=== PATIENT | male | born 1975 | race Caucasian/White ===

== ENCOUNTER 2016-10-04 02:14 | Emergency (ER) | payer OTHER ==
[~2016-10-04] VITALS: Ht 190.5 cm; Wt 108.9 kg
--- NOTE | ~2016-10-04 | CT4 ---
[facility] A Service of [facility] RADIOLOGY TEXT RESULTS PATIENT: COLTEN TEJADA LOCATION: SED : [birth year] UNIT #: [id number] AGE: [address]: Harman Hay MD SEX: M ORDER DR: [id number] [address] [address] [id number] E MR#: [id number] Acc #: [id number] NAME: COLTEN TEJADA. : 1975 SEX: M STUDY DATE/TIME: 10/04/2016 4:16 UNIT: SED ROOM: STUDY DESCRIPTION: CT Abd and Pelv Wo Cont Attending Physician: Harman Hay M.D. Ordering Physician: Harman Hay M.D. MEDICAL IMAGING REPORT This report is preliminary unless electronic signature is present. EXAM CT abdomen and pelvis without contrast INDICATIONS Left lower quadrant abdominal pain since yesterday. TECHNIQUE Unenhanced CT of the abdomen and pelvis. This CT exam was performed with one or more of the following radiation dose reduction techniques: automatic exposure control, adjustment of mA and/or kV according to patient size, and iterative reconstruction. FINDINGS ABDOMEN WITHOUT CONTRAST: Linear atelectasis or scarring at the lung bases. Hepatic steatosis. Spleen, adrenal glands, pancreas, gallbladder show no acute abnormality. Moderate colonic stool burden. Appendix normal. There is a 2 mm calculus at the left UVJ. There is moderate left hydronephrosis and perinephric stranding. PELVIS WITHOUT CONTRAST: No radiodense bladder calculus. No aggressive appearing bone lesion. IMPRESSION 1. 2 mm obstructing calculus at the left UVJ. Moderate hydronephrosis. 2. Hepatic steatosis. 1. Dictated by... Jamel Orozco M.D. [facility] A Service of [facility] RADIOLOGY TEXT RESULTS PATIENT: COLTEN TEJADA LOCATION: SED : [birth year] UNIT #: [id number] AGE: [address]: Harman Hay MD SEX: M ORDER DR: THIS IS AN ELECTRONICALLY VERIFIED REPORT Jamel Orozco M.D. at 10/04/2016 10:25 PM EED/mario TD: 10/04/2016 09:54 JOB #: [id number] MEDICAL IMAGING REPORT Page 1 of 1
[~2016-10-04 02:14] MED LIST: HYDROXYZINE HCL25 M1 PO; MEDROL4 MG/DOSE- PO
[2016-10-04 03:39] LABS: BASOPHIL# 0.1 X10e3 (0-0.3); BASOPHIL% 0.5 % (0-2.5); EOSINOPHIL% 0.1 % (0.0-7.0); HEMATOCRIT 46.8 % (38.0-50.0); HEMOGLOBIN 15.4 gm/dL (13.0-16.0); LYMPHOCYTE# 0.9 X10e3 (1.0-3.5); LYMPHOCYTE% 7.3 % (17.0-45.0); MEAN CELL VOLUME 88.9 FL (83-96); MEAN CORPUSCULAR HEMOGLOBIN 29.3 PG (28-34); MEAN PLATELET VOLUME 7.5 FL (6.5-11.5); MONOCYTE# 0.6 X10e3 (0-1.0); MONOCYTE% 5.1 % (3.0-12.0); NEUTROPHIL# 10.9 X10e3 (1.5-7.1); PLATELET COUNT 302 X10e3 (140-420); RED BLOOD COUNT 5.26 X10e (3.90-5.60); RED CELL DISTRIBUTION WIDTH 13.7 % (11.0-15.5); WHITE BLOOD COUNT 12.6 X10e3 (4.0-10.5)
[2016-10-04 03:42] LABS: DIFF IND NO
[2016-10-04 03:50] LABS: ALBUMIN SERUM 4.6 g/dL (3.5-5.0); BILIRUBIN, DIRECT 0.1 mg/dL (0.0-0.2); BILIRUBIN,INDIRECT 0.3 mg/dL (0.0-0.9); BILIRUBIN,TOTAL 0.4 mg/dL (0.2-2.0); BUN/CREATININE RATIO 14.61; CALCIUM SERUM 9.3 mg/dL (8.4-10.2); CREATININE SERUM 1.3 mg/dL (0.6-1.4); GLOM FILT RATE Estimated 68.3 mL/min (>60); POTASSIUM 4.5 mmol/L (3.5-5.1); PROTEIN TOTAL SERUM 7.7 g/dL (6.0-8.3)
[2016-10-04 06:06] LABS: URINE SOURCE CLEAN CATCH
[2016-10-04 06:08] LABS: URINE APPEARANCE CLEAR; URINE BILIRUBIN NEG (NEG); URINE BLOOD 1+ (NEG); URINE COLOR YELLOW; URINE GLUCOSE NEG (NORM); URINE KETONE NEG (NEG); URINE LEUKOCYTE ESTERASE NEG (NEG); URINE NITRATE NEG (NEG); URINE PH 5.5 (5-8); URINE PROTEIN NEG (NEG); URINE UROBILINOGEN 0.2 MG/DL (NORM)
[2016-10-04 06:12] LABS: MICRO INDICATED? YES
[2016-10-04 06:15] LABS: CULTURE INDICATED? NO; URINE BACTERIA NEG (NEG); URINE WBC 0-2 /[HPF] (0-5)
== END 2016-10-04 06:30 | disposition home or self-care (01) ==
LOC: SED 02:14
PROVIDERS: Emergency Medicine
DX: N13.2 Hydronephrosis with renal and ureteral calculous obstruction (principal); F32.9 Major depressive disorder, single episode, unspecified; F17.200 Nicotine dependence, unspecified, uncomplicated; Z79.899 Other long term (current) drug therapy
CPT/HCPCS: 36415; 74176; 80048; 80076; 81003; 83690; 85025; 96361; 96374; 96375; 99284; J1170; J1885; J2270; J2405

== ENCOUNTER 2016-10-07 15:49 | Observation (INO) | payer OTHER ==
[~2016-10-07] VITALS: Ht 190.5 cm; Wt 108.9 kg
--- NOTE | ~2016-10-07 | CT4 ---
[facility] A Service of [facility] RADIOLOGY TEXT RESULTS PATIENT: COLTEN TEJADA LOCATION: [facility] 466- : [birth year] UNIT #: [id number] AGE: [address]: Roberto Cosby MD SEX: M ORDER DR: [id number] [address] [address] [id number] I MR#: [id number] Acc #: [id number] NAME: COLTEN TEJADA. : 1975 SEX: M STUDY DATE/TIME: 10/07/2016 16:56 UNIT: SEDOF ROOM: [id number] STUDY DESCRIPTION: CT Abd and Pelv Wo Cont Attending Physician: Roberto Cosby M.D. Ordering Physician: Nehemias Martin M.D. Primary Care Physician: Primary Care Physician No MEDICAL IMAGING REPORT This report is preliminary unless electronic signature is present. EXAM CT abdomen and pelvis without contrast, 10/07/2016 HISTORY 41-year-old male with left flank pain for [address] abdomen and pelvis, 10/04/2016 TECHNIQUE Helical scan performed through the abdomen and pelvis without IV contrast. Coronal and sagittal reformatted images. This CT exam was performed with one or more of the following radiation dose reduction techniques: Automatic exposure control, adjustment of mA and/or kV according to patient size, and iterative reconstruction. FINDINGS Visualized lung bases demonstrate subsegmental bibasilar atelectasis. Diffuse fatty infiltration of the liver again noted. The spleen, pancreas, gallbladder, and both adrenal glands are within normal limits. There is again noted a 2-3 mm stone at the left ureterovesical junction, which is only minimally progressed since the prior examination from 10/04/2016. There is mild left-sided hydroureteronephrosis with interval improvement in left perinephric inflammatory stranding. No right-sided urinary tract stones. Abdominal aorta normal in course and caliber. Small bowel is unremarkable without obstruction. Appendix is normal. Colon unremarkable. Moderate stool burden. No free fluid or free air. Urinary bladder and prostate gland are unremarkable. No free pelvic fluid. No acute bony abnormality. IMPRESSION STS. [facility] A Service of [facility] RADIOLOGY TEXT RESULTS PATIENT: COLTEN TEJADA LOCATION: [place] [address] : [birth year] UNIT #: [id number] AGE: [address]: Roberto Cosby MD SEX: M ORDER DR: 1. 2-3 mm stone at the left ureterovesical junction, which is only minimally progressed since the prior examination. This again produces mild left-sided hydroureteronephrosis. There has been interval improvement in left perinephric inflammatory stranding. 2. Hepatic steatosis. 3. Normal appendix. Dictated by... Amauri Smith M.D. THIS IS AN ELECTRONICALLY VERIFIED REPORT Amauri Simth M.D. at 10/08/2016 3:52 PM DOMINGO/naren TD: 10/08/2016 02:46 JOB #: [id number] MEDICAL IMAGING REPORT Page 1 of 1
--- NOTE | ~2016-10-07 | CO ---
Unit #: [id number] #: [id number] Patient: COLTEN TEJADA [id number] [address] [address] [id number] I MR#: [id number] NAME: COLTEN TEJADA. ROOM: [facility] Age: 41 Sex: M Admission Date: 10/07/2016 : 1975 Attending Physician: Roberto Cosby M.D. Primary Care Physician: Anneliese Primary Care Physician Consultation Date: 10/08/2016 CONSULTATION REPORT REASON FOR CONSULTATION Hypertension. HISTORY OF PRESENT ILLNESS The patient is a 41-year-old male with past medical history of hypertension, who was admitted by Dr. Cosby October 07, 2016 for kidney stone. The patient was apparently seen in the emergency department on October 04, 2016. A CT of the abdomen and pelvis was done and showed a 2 mm obstructing calculus in the left ureterovesical junction with associated moderate hydronephrosis. He was discharged home. He returned to the emergency department on October 07 with persistent left flank pain. Repeat CT was done and showed 2 to 3 mm stone at the left ureterovesical junction with mild left-sided hydroureteronephrosis. He was admitted by Dr. Cosby. [facility] Medicine was consulted for hypertension. The patient states that he has been on multiple blood pressure medications in the past including amlodipine, metoprolol, hydrochlorothiazide. He has been noncompliant with medication. During the course of his hospital stay blood pressure has been 153 to 168 over 99 to 108. The patient denies any chest pain. No vision changes. No headache. No cough or cold symptoms. He does snore. He has never had a sleep study. PAST MEDICAL HISTORY Hypertension, as stated above the patient has been on multiple blood pressure medications. He is currently noncompliant with antihypertensive medications. PAST SURGICAL HISTORY Back surgery. SOCIAL HISTORY The patient lives with his . He smokes a pack of cigarettes daily. He is on disability. FAMILY HISTORY Family history is notable for both parents dying in their 40s of myocardial infarctions. ALLERGIES No known allergies. HOME MEDICATIONS Unit #: [id number] #: [id number] Patient: COLTEN TEJADA None. REVIEW OF SYSTEMS A complete review of systems is negative except as indicated in the HPI. DIAGNOSTIC STUDIES IMAGING: CT of the abdomen and pelvis from yesterday showed 2 to 3 mm stone at the left UVJ with mild left-sided hydroureteronephrosis. LABORATORY: Urinalysis notable for 3+ blood with 5 to 10 red blood cells, 0 to 2 white blood cells. Basic metabolic panel from today notable for glucose of 121. Complete blood count from today is completely normal. PHYSICAL EXAMINATION VITAL SIGNS: Temperature is 97.9. Pulse 76. Respirations 18. Blood pressure 156/99. GENERAL: The patient is a male who is ambulating about the room, in no acute distress. HEENT: The head is atraumatic. Mucous membranes are moist. NECK: Neck is supple. Trachea is midline. CARDIOVASCULAR: Regular rate and rhythm. LUNGS: Lungs are clear to auscultation bilaterally with no increased work of breathing. ABDOMEN: Abdomen is soft, nontender, with bowel sounds present in all four quadrants. EXTREMITIES: Nontender with no pedal edema. NEUROLOGIC: The patient is awake and alert. He follows commands. PSYCHIATRIC: Mood and affect are normal. The patient is cooperative. SKIN: Skin of examined areas is warm and dry. ASESSMENT The patient is a 41-year-old male with: 1. Status post cystoscopy with basket extraction and stent placement. 2. Left ureteral calculus. 3. Uncontrolled hypertension. The patient has been noncompliant with blood pressure medications. 4. He does have risk factors for sleep apnea. 5. Tobacco abuse. PLAN Regarding uncontrolled hypertension, I have ordered p.r.n. hydralazine. I have also started the patient on Norvasc and advised that he follow up with his primary care physician regarding the blood pressure. He may need a sleep study to evaluate for obstructive sleep apnea. Thank you very much for the consultation. We will follow the patient along closely with you. Dictated by... Mally Griffith M.D. PRAVEEN/maksim TD: 10/08/2016 17:57 Unit #: [id number] #: [id number] Patient: COLTEN TEJADA JOB #: [id number] CONSULTATION REPORT Page 1 of 1 X Mally Griffith MD X CONSULTATION REPORT
--- NOTE | ~2016-10-07 | HP ---
Unit #: [id number] #: [id number] Patient: COLTEN TEJADA [id number] [address] [place], [place] [address] [id number] I MR#: [id number] NAME: COLTEN TEJADA. ROOM: [facility] Age: 41 Sex: M Admission Date: 10/07/2016 : 1975 Attending Physician: Roberto Cosby M.D. Primary Care Physician: No Primary Care Physician HISTORY AND PHYSICAL CHIEF COMPLAINT Left flank pain. HISTORY This 41-year-old man with no prior history of kidney stones presents to the [facility] emergency department on 10/04/2016 and was discharged on Tamsulosin and analgesia after being diagnosed with a very small and very distal left ureteral stone, 2-3 mm appearing to be close to the ureteral orifice. On medical expulsive therapy at home he has been largely bedbound and in persistent severe pain radiating from the left flank to the groin and with nausea and vomiting. He presented again and the stone has not appreciably moved on repeat CT scan. Overnight his symptoms remain severe, although he has not had any intravenous fluid. He is accompanied by his at bedside who has also been treated for kidney stones. He has no history of gross hematuria, infections or voiding difficulties. PAST MEDICAL HISTORY Hypertension, noncompliant with medication. PAST SURGICAL HISTORY Back. MEDICATIONS None. ALLERGIES None known. FAMILY HISTORY Negative for prostate cancer. SOCIAL HISTORY Twenty pack year smoker. REVIEW OF SYSTEMS No constipation or other subsystem complaints besides above. PHYSICAL EXAMINATION GENERAL: The patient is a tall man pacing the room in pain. VITAL SIGNS: He is afebrile with stable vital signs currently. Temperature is 98.3, pulse 64, blood pressure 168/108, respirations 20, height 6'3", weight 240 pounds. Unit #: [id number] #: [id number] Patient: COLTEN TEJADA HEENT: Unremarkable. LUNGS: Clear. CARDIAC: Rate and rhythm regular. ABDOMEN: Soft with mild left lower quadrant tenderness, left CVA tenderness. : Phallus normal circumcised. Adequate meatus, testes and epididymis. Normal descended. EXTREMITIES: No edema. NEUROLOGIC: Intact. DIAGNOSTIC STUDIES LABORATORY STUDIES: Urinalysis with 3+ blood, 5-10 red cells, otherwise negative. BUN 50, creatinine 1.1, glucose 121. Electrolytes and also liver function tests normal, other than mild elevations of AST and ALT. Hemoglobin 14.9, WBC 10.3. IMAGING STUDIES: CT scan as noted above and shows a small distal left ureteral calculous with hydroureteronephrosis on the left. IMPRESSION Small distal left ureteral calculus, likely to pass spontaneously but patient has been hospitalized for failure to progress while remaining highly symptomatic for three days. Option of intervention offered. Patient is not sure what is best but agrees to the plan below, especially as weekend approaches. PLAN Will bolus with lactated Ringers, continue IV fluids and re-dose Tamsulosin. Will remain NPO and reassess mid day for possible cystoscopy and left ureteroscopy, basket extraction and stent placement. Will remain NPO and reassess midday for possible cystoscopy and left ureteroscopy, basket extraction and stent placement. Dictated by Darlene Montes/reina TD: 10/08/2016 10:03 JOB #: [id number] HISTORY AND PHYSICAL Page 1 of 1 X Clint Cedeño MD X HISTORY AND PHYSICAL
--- NOTE | ~2016-10-07 | OR ---
Unit #: [id number] #: [id number] Patient: COLTEN ETJADA [id number] [address] [address] [id number] I MR#: [id number] NAME: COLTEN TEJADA. ROOM: 466 Date of Procedure: 10/08/2016 Admission Date: 10/07/2016 Surgeon: Clint Cedeño M.D. : 1975 Attending Physician: Roberto Cosby M.D. Primary Care Physician: Primary Care Physician No OPERATIVE REPORT PREOPERATIVE DIAGNOSIS Left ureteral calculus. POSTOPERATIVE DIAGNOSIS Left ureteral calculus. PROCEDURES PERFORMED Cystoscopy, left ureteroscopy, basket extraction of calculus, placement of double-J ureteral stent with external tether. ANESTHESIA General with local supplementation. INDICATIONS FOR PROCEDURE This patient was hospitalized with a symptomatic stone, measured 2 to 3 mm at the left ureterovesical junction on CT scan. For further details, refer to admission documents. Note that, this is misplaced or missed dictation and I am dictating mainly from the obtainable written record plus general recollection. DESCRIPTION OF PROCEDURE After informed consent and preoperative antibiotics, the patient was given satisfactory general anesthesia. In the dorsal lithotomy position, routine prep and drape were performed. The 21-Japanese rigid cystoscope was introduced with a 30-degree lens and video noting no abnormalities of the anterior prostatic urethra. The bladder was entered and filled with normal mucosa observed. Normal symmetric orifices. The left ureteral orifice was cannulated with a Sensor guidewire, and Lubriglides sizes 6, 8, and 10 were advanced within the orifice. The rigid ureteroscope was passed alongside the guidewire atraumatically and a 1.8 mm Nitinol basket was used to grasp the calculus, which was extracted and submitted for chemical analysis. A 6 x 30 double-J stent was placed on the basis of his height in good position. The bladder was drained. The cystoscope was removed. The stent string was secured to the dorsum of the penis and a Uro-jet applied. Dictated by... Clint Cedeño M.D. [facility] Unit #: [id number] #: [id number] Patient: COLTEN TEJADA TD: 10/22/2016 08:54 JOB #: [id number] OPERATIVE REPORT Page 1 of 1 X Clint Cedeño MD PROCEDURE OPERATIVE NOTE
[2016-10-07] MEDS ORDERED: FLOMAX0.4 M1 (16:04)
[2016-10-07] MEDS ORDERED: PHENERGAN25 MG (16:05)
[2016-10-07] MEDS ORDERED: PERCOCET (16:05)
[2016-10-07 16:35] LABS: BASOPHIL# 0.1 X10e3 (0-0.3); BASOPHIL% 0.7 % (0-2.5); EOSINOPHIL# 0.1 X10e3 (0-0.7); EOSINOPHIL% 0.6 % (0.0-7.0); HEMATOCRIT 44.1 % (38.0-50.0); HEMOGLOBIN 14.9 gm/dL (13.0-16.0); LYMPHOCYTE# 1.3 X10e3 (1.0-3.5); LYMPHOCYTE% 12.9 % (17.0-45.0); MEAN CORPUSCULAR HEMOGLOBIN 29.7 PG (28-34); MEAN CORPUSCULAR HGB CONC 33.8 g/dL (30-36); MEAN PLATELET VOLUME 7.3 FL (6.5-11.5); MONOCYTE# 0.4 X10e3 (0-1.0); MONOCYTE% 4.1 % (3.0-12.0); NEUTROPHIL# 8.4 X10e3 (1.5-7.1); NEUTROPHIL% 81.7 % (40-75); PLATELET COUNT 344 X10e3 (140-420); RED BLOOD COUNT 5.02 X10e (3.90-5.60); RED CELL DISTRIBUTION WIDTH 13.4 % (11.0-15.5); WHITE BLOOD COUNT 10.3 X10e3 (4.0-10.5)
[2016-10-07 16:42] LABS: DIFF IND NO
[2016-10-07 16:54] LABS: BUN/CREATININE RATIO 13.63; CALCIUM SERUM 9.7 mg/dL (8.4-10.2); CREATININE SERUM 1.1 mg/dL (0.6-1.4); GLOM FILT RATE Estimated 83.5 mL/min (>60); POTASSIUM 4.2 mmol/L (3.5-5.1)
[2016-10-07 18:41] LABS: URINE SOURCE CLEAN CATCH
[2016-10-07 18:43] LABS: URINE APPEARANCE CLEAR; URINE BILIRUBIN NEG (NEG); URINE BLOOD 3+ (NEG); URINE COLOR YELLOW; URINE GLUCOSE NEG (NORM); URINE KETONE NEG (NEG); URINE LEUKOCYTE ESTERASE NEG (NEG); URINE NITRATE NEG (NEG); URINE PROTEIN NEG (NEG); URINE SPECIFIC GRAVITY <=1.005 (1.003-1.035); URINE UROBILINOGEN 0.2 MG/DL (NORM)
[2016-10-07 18:48] LABS: MICRO INDICATED? YES
[2016-10-07 18:50] LABS: CULTURE INDICATED? NO; URINE BACTERIA NEG (NEG); URINE WBC 0-2 /[HPF] (0-5)
[2016-10-08] MEDS ORDERED: NORVASC PO (16:03)
[2016-10-08] MEDS ORDERED: KEFLEX500 MG PO (16:07)
[2016-10-08] MEDS ORDERED: PERCOCET 5/321 UDTAB PO (16:13)
[2016-10-08] MEDS ORDERED: FLOMAX0.4 M1 PO (16:18)
== END 2016-10-08 17:30 | disposition home or self-care (01) ==
LOC: SED 15:49 → C4C 18:07 → SEDOF 18:07 → SED 18:07 → SEDOF 18:12 → C4C 22:47 → SEDOF 22:47 → C4C 10-08 17:30
PROVIDERS: Emergency Medicine; Urology
DX: N13.2 Hydronephrosis with renal and ureteral calculous obstruction (principal); K76.0 Fatty (change of) liver, not elsewhere classified; I10 Essential (primary) hypertension; Z91.14 Patient's other noncompliance with medication regimen; F17.200 Nicotine dependence, unspecified, uncomplicated
CPT/HCPCS: 36415; 74176; 80048; 81003; 82365; 85025; 88300; 96361; 96365; 96374; 96375; 96376; 99285; C1758; C2617; G0378; J0360; J0696; J1170; J1885; J2250; J2405; J3010

== ENCOUNTER → 2016-11-03 | Outpatient (CLI) | payer OTHER ==
[~2016-11-03] MED LIST changes: +FLOMAX0.4 M1; +FLOMAX0.4 M1 PO; +KEFLEX500 MG PO; +NORVASC PO; +PERCOCET; +PERCOCET 5/321 UDTAB PO; +PHENERGAN25 MG
--- NOTE | ~2016-11-03 | US77 ---
[facility] A Service of [facility] RADIOLOGY TEXT RESULTS PATIENT: COLTEN TEJADA LOCATION: [facility] : [birth year] UNIT #: [id number] AGE: [address]: Clint Cedeño MD SEX: M ORDER DR: [id number] [facility] [address] [place], [place] [address] [id number] O MR#: [id number] Acc #: [id number] NAME: COLTEN TEJADA : 1975 SEX: M STUDY DATE/TIME: 11/03/2016 13:45 UNIT: [facility] ROOM: STUDY DESCRIPTION: US Kidney Bilateral Complete Attending Physician: Clint Cedeño M.D. Referring Physician: Clint Cedeño M.D. Ordering Physician: Clint Cedeño M.D. Primary Care Physician: Shruthi Booker M.D. MEDICAL IMAGING REPORT This report is preliminary unless electronic signature is present EXAM Renal ultrasound INDICATIONS Left ureteral calculus removal 1 month ago. Followup. PROCEDURE Mcintyre-scale and Doppler imaging kidneys and bladder. COMPARISON CT from 10/07/2016 FINDINGS Right kidney measures 12.8 cm. No hydronephrosis. 1.8 cm cyst upper pole right kidney. Unremarkable bladder. Left kidney measures 12.3 cm. No hydronephrosis. IMPRESSION 1. No hydronephrosis. 2. Small cyst in the right kidney. Dictated by... Jamel Orozco M.D. THIS IS AN ELECTRONICALLY VERIFIED REPORT Jamel Orozco M.D. at 11/09/2016 8:53 AM EED/to TD: 11/03/2016 19:17 JOB #: [id number] MEDICAL IMAGING REPORT Page 1 of 1 COPY
[2016-11-03 13:54] LABS: CREATININE SERUM 1.1 mg/dL (0.6-1.4); GLOM FILT RATE Estimated 83.5 mL/min (>60)
== END | disposition home or self-care (01) ==
LOC: CGUS 13:10
PROVIDERS: Urology
DX: N20.1 Calculus of ureter (principal); N28.1 Cyst of kidney, acquired
CPT/HCPCS: 36415; 76770; 82565; 84520